=== PATIENT | male | born 1940 | race Caucasian/White ===

== ENCOUNTER 2023-03-02 07:55 | Emergency (ER) | payer MEDICARE, OTHER ==
[~2023-03-02] VITALS: Ht 182.9 cm; Wt 81.8 kg
[2023-03-02 08:27] VITALS: BP 156/89; PULSE 97; RESP 18; TEMP 97; O2SAT 97
[2023-03-02 09:17] LABS: Basophils # (auto) 0.1 10 ^3/uL (0-0.2); Basophils % (auto) 1.1 % (0.0-2.0); Eosinophils # (auto) 0.9 10 ^3/uL (0-0.8); Eosinophils % (auto) 7.7 % (0.0-7.0); Hematocrit 39.3 % (41.0-53.0); Hemoglobin 13.4 g/dL (13.5-17.5); Lymphocytes # (auto) 1.3 10 ^3/uL (0.4-5.4); Lymphocytes % (auto) 10.9 % (10.0-50.0); Mean Corpuscular Hemoglobin 30.1 pg (28.0-32.0); Mean Corpuscular Volume 88.6 fL (80.0-100.0); Monocytes # (auto) 1.2 10 ^3/uL (0-1.3); Monocytes % (auto) 10.4 % (0.0-12.0); Neutrophils # (auto) 8.3 10 ^3/uL (1.6-8.6); Neutrophils % (auto) 69.9 % (37.0-80.0); Nucleated Red Blood Cells % 0.1 %; Red Blood Cells 4.44 10^6/uL (4.5-5.90); Red Cell Distribution Width 13.6 % (11.8-14.3); White Blood Cell 11.9 10^3/uL (4.4-10.8)
[2023-03-02 10:37] LABS: Urine Bacteria NONE SEEN /hpf (None Seen); Urine Blood 2+ /uL (Negative); Urine Clarity Clear (Clear); Urine Color Yellow (Yellow); Urine Protein, UAD Negative (Negative); Urine Specific Gravity 1.025 (1.001-1.035); Urine Urobilinogen Normal (Negative); Urine WBC 2 /hpf (0 - 3)
[2023-03-02] MEDS ORDERED: EPINEPHrine HCL 1 MG/1 ML AMP SC ONE (11:00)
[2023-03-02] MEDS ORDERED: methylPREDNISolone SOD SUCC 125 MG/2 ML VL IM ONE (11:00)
[2023-03-02] MEDS ORDERED: CLOB0.05 TOP (11:03)
[2023-03-02] MEDS ORDERED: PRED20TA2 PO (11:03)
[2023-03-02 11:46] LABS: Chloride 109 mmol/L (98-107); Potassium 4.3 mmol/L (3.5-5.1); Sodium 141 mmol/L (136-145)
[2023-03-02 11:47] LABS: Anion Gap 6 (5-15); Calcium 9.4 mg/dL (8.5-10.1); Carbon Dioxide 26 mmol/L (20-30)
[2023-03-02 11:52] LABS: BUN/Creatinine Ratio 20.6 (10.0-20.0); Blood Urea Nitrogen 21 mg/dL (9-23); Glucose 107 mg/dL (74-106)
== END 2023-03-02 11:54 | disposition home or self-care (01) ==
LOC: ER 07:55 → EDBD 07:55 → ER 11:54
DX: T78.40XA Allergy, unspecified, initial encounter (principal); Z95.0 Presence of cardiac pacemaker; Z79.899 Other long term (current) drug therapy; Y92.89 Other specified places as the place of occurrence of the external cause
CPT/HCPCS: 36415; 80048; 81001; 85025; 96372; 99284; J0171; J2930

== ENCOUNTER 2023-07-18 21:47 | Emergency (ER) | payer MEDICARE, OTHER ==
[~2023-07-18] VITALS: Ht 172.7 cm; Wt 72.0 kg
[~2023-07-18 21:47] MED LIST: CLOB0.05 TOP; PRED20TA2 PO
[2023-07-19 03:33] VITALS: TEMP 98.4
[2023-07-19 03:39] VITALS: PULSE 64; RESP 20; O2SAT 94
[2023-07-19 04:08] LABS: Basophils # (auto) 0.1 10 ^3/uL (0-0.2); Basophils % (auto) 1.1 % (0.0-2.0); Eosinophils # (auto) 0.2 10 ^3/uL (0-0.8); Eosinophils % (auto) 1.8 % (0.0-7.0); Hematocrit 38.5 % (41.0-53.0); Hemoglobin 13.2 g/dL (13.5-17.5); Lymphocytes # (auto) 1.7 10 ^3/uL (0.4-5.4); Mean Corpuscular Hemoglobin 30.2 pg (28.0-32.0); Mean Corpuscular Hgb Conc. 34.4 g/dL (32.0-36.0); Mean Corpuscular Volume 87.7 fL (80.0-100.0); Monocytes % (auto) 9.5 % (0.0-12.0); Neutrophils # (auto) 7.5 10 ^3/uL (1.6-8.6); Neutrophils % (auto) 71.6 % (37.0-80.0); Nucleated Red Blood Cells % 0.1 %; Red Blood Cells 4.39 10^6/uL (4.5-5.90); Red Cell Distribution Width 13.7 % (11.8-14.3); White Blood Cell 10.5 10^3/uL (4.4-10.8)
[2023-07-19 04:20] LABS: Alanine Aminotransferase 20 U/L (7-40); Albumin 4.2 g/dL (3.2-4.8); Alkaline Phosphatase 119 U/L (46-116); Anion Gap 9 (5-15); Aspartate Aminotransferase 14 U/L (13-40); BUN/Creatinine Ratio 23.8 (10.0-20.0); Bilirubin, Total 0.9 mg/dL (0.2-1.0); Blood Urea Nitrogen 19 mg/dL (9-23); Calcium 9.6 mg/dL (8.7-10.4); Carbon Dioxide 23 mmol/L (20-30); Chloride 107 mmol/L (98-107); Glucose 118 mg/dL (74-106); Potassium 3.5 mmol/L (3.5-5.1); Sodium 139 mmol/L (136-145); Total Protein 6.6 g/dL (5.7-8.2)
[2023-07-19] MEDS ORDERED: BACL20TA PO (05:01)
[2023-07-19] MEDS ORDERED: IBU600T PO (05:01)
[2023-07-19 05:06] VITALS: BP 130/49; PULSE 70; RESP 14; O2SAT 94
== END 2023-07-19 04:58 | disposition home or self-care (01) ==
LOC: ER 21:47
DX: M54.2 Cervicalgia (principal); F03.90 Unspecified dementia, unspecified severity, without behavioral disturbance, psychotic disturbance, mood disturbance, and anxiety; E78.5 Hyperlipidemia, unspecified; I10 Essential (primary) hypertension; Z95.0 Presence of cardiac pacemaker
CPT/HCPCS: 36415; 70450; 71250; 72125; 74176; 80053; 85025